=== PATIENT | female | born 1975 | race Caucasian/White ===

== ENCOUNTER 2018-03-19 09:07 | Emergency (ER) | payer OTHER ==
[2018-03-19] MEDS ORDERED: NS 1,000 ML IV ONE (09:37)
[2018-03-19] MEDS ORDERED: ONDANSETRON 4 MG/2 ML VIAL IVP ONE (09:38)
[2018-03-19] MEDS ORDERED: MECLIZINE HCL 25 MG TAB PO ONE (09:51)
--- NOTE | 2018-03-19 09:55 | CPEKG ---
Heart Rate: 57 RR Interval: 1053 P-R Interval: 164 QRSD Interval: 78 QT Interval: 424 QTC Interval: 413 P Eden: 69 QRS Eden: 45 T Wave Eden: 42 EKG Severity - BORDERLINE ECG - EKG Impression: SINUS RHYTHM EKG Impression: LOW VOLTAGE THROUGHOUT Electronically Signed By: Mita Parker 19-Mar-2018 15:01:48
--- NOTE | 2018-03-19 09:55 | EDPHY ---
H & P Stated Complaint: awakened this am with sensation mattress tilting/dizzy/ nauseated Time Seen by Provider: 03/19/18 09:40 HPI/ROS: CHIEF COMPLAINT: "I felt like my mattress was tipping" HISTORY OF PRESENT ILLNESS: 43-year-old female history of hypothyroid, arrives via private vehicle stating that she woke this morning and felt like her mattress was tipping onto its side. She was unable to ambulate, had to crawl to the bathroom and crawl back to bed. She describes feeling better if she is not moving her head, has reproducible vertigo symptoms if she moves her head. She denies: Tinnitus, hearing loss, barotrauma, foreign body insertion to the ears, recent illness, major or minor head or neck trauma or manipulation, chiropractic manipulation, illicit drug or alcohol use, slurred speech, gait instability, headache REVIEW OF SYSTEMS: A ten point review of systems was performed and is negative with the exception of the items mentioned in the HPI PAST MEDICAL & SURGICAL HISTORY: Hypothyroid. SOCIAL HISTORY: Nonsmoker. No drug use. . PHYSICAL EXAM (Prior to examination, patient consented to physical exam, hands were washed and my usual and customary physical exam procedures followed) 1) GENERAL: Well-developed, well-nourished, alert and oriented. Appears anxious , uncomfortable, especially if she moves her head. She is sitting on the edge of the bed hesitant to move. She is hesitant to move her head 2) HEAD: Normocephalic, atraumatic 3) HEENT: Pupils equal, round, reactive to light bilaterally. Sclera anicteric. Nasopharynx, oropharynx, clear, no lesions. Ears bilaterally with normal tympanic membranes. No signs of otitis media or externa. 4) NECK: Full range of motion, no meningeal signs. 5) LUNGS: Clear auscultation bilaterally, no wheezes, no rhonchi, no retractions. 6) HEART: Regular rate and rhythm, no murmur, no heave, no gallop. 7) ABDOMEN: No guarding, no rebound, no focal tenderness, negative McBurney's, negative Iwlson's, negative Rovsing's, negative peritoneal sign, 8) MUSCULOSKELETAL: Moving all extremities, no focal areas of tenderness, no obvious trauma. No peripheral edema or discoloration. 9) BACK: No CVA tenderness, no midline vertebral tenderness, no fluctuance, no step-off, no obvious trauma, no visual or palpable abnormality. 10) SKIN: No rash, no petechiae. 11) Psychiatric: Patient is oriented X 3, there is no agitation. 12) NEURO: Awake, alert, and oriented to person, place and time. Answers questions appropriately. There were no obvious focal neurologic abnormalities. No cerebellar dysfunction. Cranial nerves 2 through to 12 intact. Normal steady gait. Upper and lower extremities bilaterally with strength 5 / 5, reflexes 2+. DIFFERENTIAL DIAGNOSIS: In no particular order including but not limited to benign positional vertigo, Meniere's disease, acoustic neuroma, central malignancy, vertebral artery dissection, cardiac dysrhythmia - Personal History LMP (Females 10-55): 15-21 Days Ago Current Tetanus/Diphtheria Vaccine: Yes - Medical/Surgical History Hx Asthma: No Hx Chronic Respiratory Disease: No Hx Diabetes: No Hx Cardiac Disease: No Hx Renal Disease: No Hx Cirrhosis: No Hx Alcoholism: No Hx HIV/AIDS: No Hx Splenectomy or Spleen Trauma: No Other PMH: denies - Social History Smoking Status: Never smoked Constitutional: Initial Vital Signs Temperature (C) 36.3 C 03/19/18 09:12 Heart Rate 66 03/19/18 09:12 Respiratory Rate 20 03/19/18 09:12 Blood Pressure 106/74 03/19/18 09:12 O2 Sat (%) 100 03/19/18 09:12 O2 Delivery Mode Room Air Allergies/Adverse Reactions: Sulfa (Sulfonamide Antibiotics) [Sulfa(Sulfonamide Antibiotics)] Allergy ( Unknown, Verified 03/19/18 09:10) ciprofloxacin [From Cipro] Allergy (Verified 03/19/18 09:10) codeine Allergy (Verified 03/19/18 09:10) Home Medications: Medication Instructions Recorded Meclizine HCl [Antivert] 25 mg PO Q6 PRN #15 tab 03/19/18 Ondansetron Odt [Zofran Odt] 4 mg PO Q4PRN PRN #10 tab 03/19/18 Synthroid 03/19/18 Medical Decision Making ED Course/Re-evaluation: 9:55 a.m.: Patient will be given antiemetic, meclizine, will obtain laboratory studies and re-evaluated. At this time she has a nonfocal exam. Care of patient under supervision of secondary supervising physician Dr Parker . 10:19 a.m.: Re-evaluation after Zofran. She appears significantly improved. She has changed positions on the bed is now laying back appears comfortable 11:04 a.m.: Re-evaluation "I am feeling totally better". Will attempt ambulation challenge. 11:40 a.m.: - Data Points Laboratory Results: Laboratory Results 03/19/18 09:30 03/19/18 09:30 03/19/18 03/19/18 03/19/18 09:30 09:30 09:30 WBC 9.36 10^3/uL 10^3/uL (3.80-9.50) RBC 4.69 10^6/uL 10^6/uL (4.18-5.33) Hgb 14.2 g/dL g/dL (12.6-16.3) Hct 42.8 % % (38.0-47.0) MCV 91.3 fL fL (81.5-99.8) MCH 30.3 pg pg (27.9-34.1) MCHC 33.2 g/dL g/dL (32.4-36.7) RDW 12.7 % % (11.5-15.2) Plt Count 290 10^3/uL 10^3/uL (150-400) MPV 9.6 fL fL (8.7-11.7) Neut % (Auto) 77.8 % H % (39.3-74.2) Lymph % (Auto) 17.4 % % (15.0-45.0) [place] % (Auto) 4.1 % L % (4.5-13.0) Eos % (Auto) 0.1 % L % (0.6-7.6) Baso % (Auto) 0.2 % L % (0.3-1.7) Nucleat RBC Rel Count 0.0 % % (0.0-0.2) Absolute Neuts (auto) 7.28 10^3/uL H 10^3/uL (1.70-6.50) Absolute Lymphs (auto) 1.63 10^3/uL 10^3/uL (1.00-3.00) Absolute Monos (auto) 0.38 10^3/uL 10^3/uL (0.30-0.80) Absolute Eos (auto) 0.01 10^3/uL L 10^3/uL (0.03-0.40) Absolute Basos (auto) 0.02 10^3/uL 10^3/uL (0.02-0.10) Absolute Nucleated RBC 0.00 10^3/uL 10^3/uL (0-0.01) Immature Gran % 0.4 % % (0.0-1.1) Immature Gran # 0.04 10^3/uL 10^3/uL (0.00-0.10) Sodium 146 mEq/L H mEq/L (135-145) Potassium 4.1 mEq/L mEq/L (3.5-5.2) Chloride 107 mEq/L mEq/L (97-110) Carbon Dioxide 27 mEq/l mEq/l (22-31) Anion Gap 12 mEq/L mEq/L (8-16) BUN 12 mg/dL mg/dL (7-23) Creatinine 0.6 mg/dL mg/dL (0.6-1.0) Estimated GFR > 60 Glucose 106 mg/dL H mg/dL (70-100) Calcium 9.7 mg/dL mg/dL (8.5-10.4) TSH 1.580 uIU/mL uIU/mL (0.465-4.680) Beta HCG, Qual NEGATIVE Medications Given: Discontinued Medications Sodium Chloride (Ns) 1,000 mls @ 0 mls/hr IV ONCE ONE PRN Reason: Wide Open Stop: 03/19/18 09:38 Last Admin: 03/19/18 09:57 Dose: 1,000 mls Meclizine HCl (Meclizine Hcl) 25 mg PO EDNOW ONE Stop: 03/19/18 09:52 Last Admin: 03/19/18 09:57 Dose: 25 mg Ondansetron HCl (Zofran) 4 mg IVP EDNOW ONE Stop: 03/19/18 09:39 Last Admin: 03/19/18 10:05 Dose: 4 mg Departure - Departure Disposition: Home, Routine, Self-Care Clinical Impression: Benign positional vertigo Qualifiers: Laterality: unspecified laterality Qualified Code(s): H81.10 - Benign paroxysmal vertigo, unspecified ear Condition: Good Instructions: Benign Paroxysmal Positional Vertigo (ED) Additional Instructions: Return to the ER if you develop inability to walk, inability care for yourself, if you develop headaches, or any other symptoms that he concern you Referrals: Getachew Peterson DO [Doctor of Osteopathy] - 1-2 days without fail Prescriptions: Meclizine HCl [Antivert] 25 mg PO Q6 PRN #15 tab PRN Reason: Dizziness Ondansetron Odt [Zofran Odt] 4 mg PO Q4PRN PRN #10 tab PRN Reason: Nausea
[2018-03-19 09:58] LABS: PLATELET COUNT 290 10^3/uL (150-400)
[2018-03-19 12:00] VITALS: BP 91/67
== END 2018-03-19 11:59 | disposition home or self-care (01) ==
DX: H81.10 Benign paroxysmal vertigo, unspecified ear (principal)
CPT/HCPCS: 96374; J2405